=== PATIENT | male | born 2000 | race Caucasian/White ===

== ENCOUNTER 2025-05-30 09:52 | Outpatient (AMB) | payer BC, OTHER, SELFPAY ==
--- NOTE | 2025-05-30 09:56 | MHC.PC.OV ---
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 GI tract ileus/Constipation. SurgHx: Adenoids & Nasal Septum age 6. Septum repair age 15. TM tubes as infant FHx: Mom: Hashimotos's, OA. Dad: Colon CA Dx'd age 45. Aunt Breast CA SocHx: Cigs x 6 mos & quit 2020. Vapes. EtOH: 1 dr a month. No drugs HPI Comments History of Present Illness Details Documentation assistance for Luis Angel Oden MD, was provided by Hayder Sanabria,? Fern Gatherer on 05/30/2025 at 10:41 AM EST. I, Dr. Oden, have read, observed, and verified documentation. ?? 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 apartment) Alcohol intake: current Patient Tobacco Use Status: Former Tobacco user Cigarette Packs Per Day: 1 Cigarettes Per Day: 2 Years Smoked: 1 e-Cigarette/Vaping Use: Currently Using Second Hand Smoke Exposure: Yes service: No Current occupational status: employed and student 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 1. Little interest or pleasure in doing things: not at all 2. Feeling down, depressed, or hopeless: not at all 3. Trouble falling or staying asleep, or sleeping too much: several days 4. Feeling tired or having little energy: several days 5. Poor appetite or overeating: more than half the days 6. Feeling bad about yourself - or that you are a failure or have let yourself or your family down: not at all 7. Trouble concentrating on things, such as reading the newspaper or watching television: not at all 8. Moving or speaking so slowly that other people could have noticed. Or the opposite - being so fidgety or restless that you have been moving around a lot more than usual: not at all 9. Thoughts that you would be better off or of hurting yourself in some way: not at all Total score: 4 Depression Screening Interpretation: Negative Depression Screening Done: Yes 45106 - PHQ-9 Billing: Yes Source: Developed by Drs. Dashawn Hugo, June Lozoya, Maynor Santillan and colleagues, with an educational cassie from [employer]. Thrive Questionnaire Date Thrive assessed: 05/30/25 I am a: Patient What is your living situation today?: I have a steady place to live Within the past 12 months, did the food you bought not last and you didn't have the money to get more?: Never true Within the past 12 months, did you worry whether your food would run out before you got money to buy more?: Never true Do you have trouble paying for medicines?: No Do you have trouble getting transportation to medical appointments?: No Do you have trouble paying your heating and electricity bill?: No Do you have trouble taking care of your child, family member or friend?: No Do you have trouble with day-to-day activities such as bathing, preparing meals, shopping, managing finances, etc.?: No Are you currently unemployed and looking for a job?: No Are you interested in more education?: Yes Please select the resources that you would like help with: None Currently or been in a relationship where the following occur: No concerns reported THRIVE Score: 0 AUDIT C Alcohol Use Questionnaire (AUDIT-C) 1. How often do you have a drink containing alcohol?: Monthly or less 2. How many drinks containing alcohol do you have on a typical day when you are drinking?: 1 or 2 3. How often do you have six or more drinks on one occasion?: Never Total Score: 1 AMARJIT-7 AMB Questionnaire AMARJIT-7 Date AMARJIT - 7 assessed: 05/30/25 Feeling nervous, anxious, or on edge: 1 = Several days Not being able to stop or control worryin = Several days Worrying too much about different things: 2 = More than half the days Trouble relaxin = More than half the days Being so restless that it is hard to sit still: 1 = Several days Becoming easily annoyed or irritable: 1 = Several days Feeling afraid as if something awful might happen: 0 = Not at all Total AMARJIT-7 score (0-4 normal; 5-9 mild; 10-14 moderate; 15-21 severe): 8 Source: Developed by Drs. Dashawn Hugo, June Lozoya, Maynor Santillan and colleagues, with an educational cassie from [employer]. AMARJIT-7 Assessment Billing AMARJIT-7 Assessment Tool: AMARJIT-7 Assessment 35031 Review of Systems Const Denies chills, Denies fatigue, Denies fever(s), Denies headache(s) and Denies weakness ENT Denies dizziness and Denies headache(s) Card Denies chest pain, Denies lightheadedness, Denies dyspnea and Denies other (Palpitations) Resp Denies cough, Denies dyspnea, Denies wheezing and Denies other ( shortness of breath) Musc Denies numbness and Denies tingling Neuro Denies dizziness, Denies headache(s), Denies numbness, Denies tingling, Denies paresthesias and Denies weakness Psych Denies anxiety and Denies depression Endo Denies fatigue Aller/Immun Denies wheezing Physical exam (Primary Care) Vital Signs: Last Vital Signs Temp 98.1 F 05/30/25 10:04 Pulse 61 05/30/25 10:04 Resp 14 05/30/25 10:04 BP 143/80 H 05/30/25 10:26 Pulse Ox 98 05/30/25 10:04 Oxygen Delivery Method Room Air 05/30/25 10:04 BMI result Body Mass Index 32.1 Tobacco/Smoking Status: Tobacco use Status Tobacco use date assessed 05/30/25 05/30/25 10:07 Patient Tobacco Use Status Former Tobacco user 05/30/25 10:07 e-Cigarette/Vaping Use Currently Using 05/30/25 10:07 PHQ-9: PHQ-9 Score PHQ-9: Total score 4 05/30/25 10:27 Depression Screening Interpretation: Negative Thrive Assessment: Date of Thrive Assessment Date Thrive assessed 05/30/25 05/30/25 09:58 Currently or been in a relationship where the following occur: No concerns reported Const General: no acute distress and well developed Nutritional Appearance: well nourished Orientation/consciousness: patient oriented x3 HENMT Head: Yes normocephalic and Yes atraumatic Eyes General: appearance normal, both eyes and all related structures Pupils: Equal, round and reactive pupils present EOM: EOMs intact bilaterally Resp Effort & Inspection: normal respiratory effort Auscultation: clear to auscultation bilaterally Cardio Rate: regular rate Rhythm: regular rhythm Heart sounds: S1 normal heart sound present, S2 normal heart sound present, no gallops, no murmurs and no rubs Neuro General: patient oriented x3 and gait normal Cranial nerves: Yes Equal, round and reactive pupils present Psych Affect: normal affect Coding Level of Care Code New Pt Level 3 (97227) Diagnoses Elevated blood pressure reading R03.0 Laboratory exam ordered as part of routine general medical examination Z00.00 Additional Codes AMARJIT-7 Assessment Billing - AMARJIT-7 Assessment Tool: AMARJIT-7 Assessment 44139 ([id number]) PHQ-9 - 56276 - PHQ-9 Billing: Yes ([id number]) Assessment & Plan Assessment & Plan (1) Elevated blood pressure reading: Code(s): R03.0 - Elevated blood-pressure reading, without diagnosis of hypertension Category: Medical Plan: Blood pressure is elevated. No prior diagnosis of hypertension. He does note that he has gained weight and his diet has worsened. Also notes that his exercise has declined over the past year. Encouraged diet lower in sodium and salt. Encouraged weight loss and exercise Will recheck at next visit. We discussed that it is still elevated, we should discuss medication (2) Laboratory exam ordered as part of routine general medical examination: Code(s): Z00.00 - Encounter for general adult medical examination without abnormal findings Category: Medical Plan: Labs ordered Orders: Orders Comprehensive Webster. Panel Fast Today Z00.00 - Encounter for general adult medical examination without abnormal findings Lipid Panel Today Z00.00 - Encounter for general adult medical examination without abnormal findings UA CC w/rflx Micro + Cult Today Z00.00 - Encounter for general adult medical examination without abnormal findings Microalbumin, Random (w Creat) Today I10 - Essential (primary) hypertension TSH reflex Free T4 Today Z00.00 - Encounter for general adult medical examination without abnormal findings
[2025-05-30 10:04] VITALS: BP 140/90; PULSE 61; RESP 14; TEMP 36.7; O2SAT 98; BMI 32.1
[2025-05-30 10:26] VITALS: BP 143/80
--- OUTSIDE RECORDS SUMMARY | 2025-05-30 10:27 | XMS_ITS | Clinical Summary ---
Author Organization [facility] Address [address] [address] Phone Care Team Providers Care Harvester Operator Name Role Phone Pcp, Unknown Primary Care Provider Unavailabl e Allergies No known active allergies Medications No known medications Active Problems Patient Care Coordination No te Formatting of this note migh t be different from the original. Balta cell [phone] Problem Noted Date Diagnosed Date Elevated cholesterol 12/29/2018 Anxiety 12/27/2017 BMI 28.0-28.9,adult 04/17/2009 Allergic rhinitis 12/21/2007 Overview (12/07/2014): Allergic rhinitis Encounters Date Type Department Care Team Description 04/19/2025 Documentation [facility] [address] [place] [address] Pcp, Unknown from Last 3 Months Immunizations Immunization Administration Dates Next Due COVID-19 (Pre-08/09) Moderna Vaccine, mRNA, PF 11/25/2020,10/30/2020 DTaP, unspecified formulation 03/05/2006 ,03/09/2002,06/23/2001,04/18,02/11/2001 [id number] FORMULATION 12/23/2009,05/2010 Hepatitis A, Adult 01/25/2020 Hepatitis A, ped/adol, 2 dose 03/10/2019 Hepatitis B, unspecified formulation 09/22/2001, 01/11/2001,2000 Hib, unspecified formulation 03/09/2002, 06/23/2001,04/18/2001,02/11 INFLUENZA, SPLIT VIRUS, TRIV ALENT W/ PRESERVATIVE IM 12/06/2013,11/07/2012 Influenza, Unspecified Formulation 09/25/2010,,07/03/2009 MMR 03/05/2006,12/12/2001 Meningococcal MCV4P 03/10/2019, 9(Deferred: Patient Decision),01/27/2013 Pneumococcal conjugate, PCV 7 06/23/2001, 001,02/11/2001 Polio, Unspecified Formulation 5,09/22/2001,04/18/2001,02/11 Tdap 03/31/2023,01/27/2013 Varicella 09/25/2010,03/09/2002 Family History Medical History Relation Comments Asthma Father asthma Colon cancer Father Hypertension Father hypertension Ulcers Maternal Grandfather Ulcers Maternal Grandmother Ulcers Mother Breast cancer Unspecified breast cancer ; Aunt at age of 33 and is still living Relation Status Comments Father Alive Maternal Grandfather Maternal Grandmother Mother Unspecified Social History Tobacco Use Types Packs/Day Years Used Date Smoking Tobacco: Former Smokeless Tobacco: Never Alcohol Use Standard Drinks/Week Comments Yes 2 (1 standard drink = 0.6 oz pur e alcohol) Education Answer Date Recorded Are you interested in more education? Not on beena e 02/12/2023 Are you concerned about learning? Not on file 02/12/2023 No 02/12/2023 No 02/12/2023 Digital Access Answer Date Recorded No 03/15/2023 No 03/15/2023 Reliable internet access at home? Not on file 03/15/2023 Device with a working camera? Not on file Sex and Gender Information Value Date Recorded Sex Assigned at Not on file Legal Sex Male 3:11 AM EST Gender Identity Not on file Sexual Orientation Not on file Last Filed Vital Signs Vital Sign Reading Time Taken Comments Blood Pressure 122/70 03/31/2023 1:10 PM EDT Pulse 84 11/25/2021 2:00 PM EST Temperature 37.2 C (98.9 F) 12/04/2021 1:56 PM EST Respiratory Rate 24 12/20/2007 2:08 PM EST Oxygen Saturation - - Inhaled Oxygen Concentration - - Weight 84.8 kg (187 lb) 03/31/2023 1:10 PM EDT Height 173 cm (5' 8.11 ) 03/31/2023 1:10 PM EDT Body Mass Index 28.34 03/31/2023 1:10 PM EDT Plan of Treatment Health Maintenance Due Date Last Done Comments SMOKING Hx and SMOKELESS TOBACCO SCREENING 2013 HPV VACCINES (1 - Male 3-dose series) 2015 DEPRESSION SCREENING 03/31/2024 03/31/2023, 03/31/20 COVID-19 VACCINE ( season) 2024 10/28/2021, 11/25/2020, 10/30/2020 Adult Td,Tdap Booster 03/31/2033 03/31/2023, 013 PNEUMOCOCCAL VACCINES (0-49 years) Aged Out 06/23/2001, 04/18/2001, 02/11/2001 No longer eligible based on patient's age to complete this topic HIB VACCINES Completed 03/09/2002, 03/2001, 04/18/2001, Additional history exists MENINGOCOCCAL VACCINES (ACWY) Completed 03/10/2019, 01/27/2013 HEPATITIS A VACCINES Completed 01/25/2020, 03/10/20 19 MENINGOCOCCAL VACCINES (B) Aged Out N o longer eligible based on patient's age to complete this topic Medical Devices Not on file Insurance [facility] Care Teams Harvester Operator Relationship Specialty Start Date End Date Pcp, Unknown PCP - General 12/06/24 Additional Source Comments The information contained in this document represents components of the legal health record. It is not the complete legal health record.[facility]
--- OUTSIDE RECORDS SUMMARY | 2025-05-30 10:27 | XMS_ITS | Clinical Summary ---
Author Organization [facility] Address [address] [place] [address] Phone Care Team Providers Care Truck Engine Assembler Name Role Phone Edgar Melendez MD Primary Care Provider [phone] Edgar Melendez MD Unavailable [phone] Edgar Melendez MD Unavailable [phone] Social History Tobacco Use Types Packs/Day Years Used Date Smoking Tobacco: Never Assessed Sex and Gender Information Value Date Recorded Sex Assigned at Not on file Legal Sex Male 6:57 PM EDT Gender Identity Not on file Sexual Orientation Not on file Plan of Treatment Not on file Care Teams Truck Engine Assembler Relationship Specialty Start Date End Date Edgar Melendez MD [address] [address] PCP - General 04/15/07 Edgar Melendez MD [address] [address] PCP - Clinical PCP 01/20/16 Edgar Melendez MD [address] [address] PCP - Insurance PCP 04/15/07
--- OUTSIDE RECORDS SUMMARY | 2025-05-30 10:27 | XMS_ITS | Clinical Summary ---
Author Organization [facility] Address [address] [place] [address] Care Team Providers Care Corporate Planner Name Role Phone Edgar Melendez MD Primary Care Provider [phone] Allergies No known active allergies Medications No known medications Social History Tobacco Use Types Packs/Day Years Used Date Smoking Tobacco: Never Smokeless Tobacco: Never Alcohol Use Standard Drinks/Week Comments Yes 0 (1 standard drink = 0.6 oz pur e alcohol) Sex and Gender Information Value Date Recorded Sex Assigned at Not on file Legal Sex Male 6:41 PM EDT Gender Identity Not on file Sexual Orientation Not on file Last Filed Vital Signs Vital Sign Reading Time Taken Comments Blood Pressure 143/83 12/26/2021 2:04 PM EST Pulse 64 12/26/2021 2:04 PM EST Temperature 36.8 C (98.3 F) 12/26/2021 2:04 PM EST Respiratory Rate 16 12/26/2021 2:04 PM EST Oxygen Saturation 98% 12/26/2021 2:04 PM EST Inhaled Oxygen Concentration - - Weight 86.2 kg (190 lb) 12/26/2021 2:04 PM EST Height 175.3 cm (5' 9 ) 12/26/2021 2:04 PM EST Body Mass Index 28.06 12/26/2021 2:04 PM EST Plan of Treatment Health Maintenance Due Date Last Done Comments Annual Physical 2003 HPV Vaccines (1 - Male 3-dose series) 2015 Hepatitis B Screening 2018 DTaP,Tdap,and Td Vaccines (7 - Td or Tdap) 01/27/2023 01/27/2013, 03/05/2006, 03/09/2002, Additional history exists COVID-19 Vaccine ( season) 2024 11/25/2020, 10/30/2020 Influenza Vaccine (#1) 2025 4, 11/07/2012, 09/25/2010, Additional history exists Pneumococcal Vaccines 0-49 yrs (includes High Risk) Aged Out 06/23/2001, 04/18/2001, 02/11/2001 No longer eligible based on patient's age to complete this topic HIB Vaccines Completed 03/09/2002, 03/2001, 04/18/2001, Additional history exists Hepatitis A Vaccine Completed 01/25/2020, 9 Insurance Care Teams Corporate Planner Relationship Specialty Start Date End Date Edgar Melendez MD [address] [place] [address], [address] [facility] [place] [place] PCP - General Pediatrics 12/26/21
== END 2025-05-30 10:42 | disposition home or self-care (01) ==
LOC: HO.HMCFM 09:52
PROVIDERS: PCP Family Medicine; Visit Provider Family Medicine
DX: R03.0 Elevated blood-pressure reading, without diagnosis of hypertension (principal); Z00.00 Encounter for general adult medical examination without abnormal findings

== ENCOUNTER → 2025-05-30 09:52 | Outpatient (BNVA) | payer BC, OTHER, SELFPAY | PROVIDERS: PCP Family Medicine; Visit Provider Family Medicine | DX: Z00.00 Encounter for general adult medical examination without abnormal findings (principal); R03.0 Elevated blood-pressure reading, without diagnosis of hypertension; I10 Essential (primary) hypertension | CPT/HCPCS: 96127 ==

== ENCOUNTER 2025-09-18 11:33 | Outpatient (AMB) | payer BC, OTHER, SELFPAY ==
--- NOTE | 2025-09-18 11:38 | MHC.PC.OV ---
Vital Signs 09/18/25 11:41 Height 5 ft 9 in Weight 208 lb 8 oz BMI 30.8 BP 130/68 Blood Pressure Location Rt brachial Position Sitting Respiration 14 Pulse 78 Pulse Source Pulse Oximeter Temp 98.4 F Temp Source Temporal Artery Scan Pulse Oximetry (%) 98 Oxygen Delivery Method Room Air Intake Visit Reasons: CPE with f/u labs and health maint. 30 mins Intake Note: Balta presents in the office today for his annual physical. 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 30 mins HPI Details 24 y/o male presents for a CPE with f/u labs. No recent labs to review. Blood pressure today 130/68, 78p. Had been elevated before last office visit in May. 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 apartment) Alcohol intake: current Patient Tobacco Use Status: Former Tobacco user Cigarette Packs Per Day: 1 Cigarettes Per Day: 2 Years Smoked: 1 e-Cigarette/Vaping Use: Currently Using Second Hand Smoke Exposure: Yes service: No Current occupational status: employed and student 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 [place] Current occupational exposures/hazards: Yes Cognitive needs: No Hearing needs: No Vision needs: No Questionnaire Thrive Questionnaire Date Thrive assessed: 05/30/25 I am a: Patient What is your living situation today?: I have a steady place to live Within the past 12 months, did the food you bought not last and you didn't have the money to get more?: Never true Within the past 12 months, did you worry whether your food would run out before you got money to buy more?: Never true Do you have trouble paying for medicines?: No Do you have trouble getting transportation to medical appointments?: No Do you have trouble paying your heating and electricity bill?: No Do you have trouble taking care of your child, family member or friend?: No Do you have trouble with day-to-day activities such as bathing, preparing meals, shopping, managing finances, etc.?: No Are you currently unemployed and looking for a job?: No Are you interested in more education?: Yes Please select the resources that you would like help with: None Currently or been in a relationship where the following occur: No concerns reported THRIVE Score: 0 AMARJIT-7 AMB Questionnaire AMARJIT-7 Date AMARJIT - 7 assessed: 05/30/25 Source: Developed by Drs. Dashawn Hugo, June Lozoya, Maynor Santillan and colleagues, with an educational cassie from [employer]. Review of Systems Const Denies chills, Denies fatigue, Denies fever(s), Denies headache(s) and Denies weakness Eyes Denies change in vision ENT Denies dizziness, Denies headache(s), Denies hearing loss, Denies nasal congestion, Denies sinus pain, Denies sinus pressure and Denies sore throat Card Denies chest pain, Denies lightheadedness, Denies dyspnea and Denies other (palpitations) Resp Denies cough, Denies dyspnea and Denies wheezing GI Denies abdominal pain, Denies melena, Denies hematochezia, Denies change in bowel habits, Denies dyspepsia and Denies nausea Denies hematuria and Denies dysuria Musc Denies abnormal gait, Denies myalgias, Denies arthralgias, Denies numbness and Denies tingling Skin/Breast Denies rash, Denies unusual bruising and Denies wounds Neuro Denies abnormal gait, Denies dizziness, Denies headache(s), Denies memory loss, Denies numbness, Denies Sensory deficit (Neuro), Denies tingling and Denies weakness Psych Denies anxiety, Denies depression and Denies memory loss Endo Denies cold intolerance, Denies fatigue, Denies heat intolerance, Denies polydipsia and Denies polyuria Brendon/Lymph Denies easy bleeding and Denies easy bruising Aller/Immun Denies wheezing Physical exam (Primary Care) Vital Signs: Last Vital Signs Temp 98.4 F 09/18/25 11:41 Pulse 78 09/18/25 11:41 Resp 14 09/18/25 11:41 BP 130/68 09/18/25 11:41 Pulse Ox 98 09/18/25 11:41 Oxygen Delivery Method Room Air 09/18/25 11:41 BMI result Body Mass Index 30.8 Tobacco/Smoking Status: Tobacco use Status Tobacco use date assessed 09/18/25 09/18/25 11:43 Patient Tobacco Use Status Former Tobacco user 09/18/25 11:41 e-Cigarette/Vaping Use Currently Using 09/18/25 11:41 Thrive Assessment: Date of Thrive Assessment Date Thrive assessed 05/30/25 09/18/25 11:39 Currently or been in a relationship where the following occur: No concerns reported Const General: no acute distress, well developed, alert and awake Nutritional Appearance: well nourished Orientation/consciousness: patient oriented x3 HENMT Head: Yes normocephalic and Yes atraumatic Ears: hearing grossly normal bilaterally and TM's normal bilaterally General nose exam: Normal external nose present and Normal nares present Mouth: Normal oral and palatal mucosa present and moist mucous membranes Teeth and gingiva: dentition normal Throat: Yes posterior oropharynx normal Eyes General: appearance normal, both eyes and all related structures Pupils: Equal, round and reactive pupils present and Pupil accommodation reflex normal EOM: EOMs intact bilaterally Neck Neck: Yes normal visual inspection, Yes no lymphadenopathy and Yes trachea midline Thyroid: Thyroid normal Carotids: no bruits Lymphatic: no lymphadenopathy noted Chest Chest palpation & inspection: normal inspection of the chest Resp Effort & Inspection: normal respiratory effort Auscultation: clear to auscultation bilaterally Cardio Rate: regular rate Rhythm: regular rhythm Heart sounds: S1 normal heart sound present, S2 normal heart sound present, no gallops, no murmurs and no rubs Bruits: no abdominal aortic bruits and no carotid bruits GI Palpation (GI): No Abdominal aortic bruit present, Soft to palpation, nontender, No hepatosplenomegaly present and No Rebound tenderness present Auscultation: normal bowel sounds General: Yes no CVA tenderness Back/Spine/Pelvis Back: no CVA tenderness Cervical Spine: cervical ROM normal and No Cervical spine tenderness Thoracic/Lumbar Spine: thoraco-lumbar ROM normal, No pain with thoraco-lumbar ROM, No thoracic spinal tenderness and No lumbar spinal tenderness Skin Lesions: no lesions Rashes: no rashes Trauma: no lacerations or abrasions Wounds: no wounds Nails: normal Neuro General: patient oriented x3 Cranial nerves: Yes Equal, round and reactive pupils present Cognition (Neuro): normal cognition Gait exam (Neuro): Normal gait present Motor exam (neuro): 5/5 motor strength present throughout Sensory Exam: No Sensory deficit (Neuro) Deep tendon reflexes (DTR's): Right patellar reflex intensity grade: 2+ and Left patellar reflex intensity grade: 2+ Extrem General: Yes normal to inspection and No edema Psych Appearance: grossly normal Affect: normal affect Attitude: cooperative Thought process: Normal thought process present Coding Level of Care Code Est Pt Level 3 (76606) Est Pt Prev Care 18-39y(20338) Diagnoses Adult general medical exam Z00.00 Elevated blood pressure reading R03.0 Assessment & Plan Assessment & Plan (1) Adult general medical exam: Code(s): Z00.00 - Encounter for general adult medical examination without abnormal findings Category: Medical Plan: 24-year-old male presents for complete physical exam Exam within limits Encouraged healthy diet with active lifestyle and plenty of exercise (2) Elevated blood pressure reading: Code(s): R03.0 - Elevated blood-pressure reading, without diagnosis of hypertension Category: Medical Plan: Blood pressure is still elevated but < 140/90 Prehypertensive range Work at diet low in Salt/Sodium. Encouraged exercise & Wt control Will continue to monitor
[2025-09-18 11:41] VITALS: BP 130/68; PULSE 78; RESP 14; TEMP 36.9; O2SAT 98; BMI 30.8
--- OUTSIDE RECORDS SUMMARY | 2025-09-18 13:46 | XMS_ITS | Clinical Summary ---
Author Organization [facility] Address [address] [place] [id number] Care Team Providers Care Founding Partner Name Role Phone Edgar Melendez MD Primary Care Provider [phone] Allergies No known active allergies Medications No [...] 12/26/2021 2:04 PM EST Plan of Treatment Not on file Insurance [facility] Care Teams Founding Partner Relationship Specialty Start Date End Date Edgar Melendez MD [address] [place] [address], [address] [facility] [place] [place] PCP - General Pediatrics 12/26/21
--- OUTSIDE RECORDS SUMMARY | 2025-09-18 13:46 | XMS_ITS | Clinical Summary ---
Author Organization [facility] Address [address] [place] [address] Phone Care Team Providers Care Straightedge Worker Name Role Phone Edgar Melendez MD Primary Care Provider [phone] Edgar Melendez MD Unavailable [phone] Edgar Melendez MD Unavailable [phone] Social History Tobacco Use Types Packs/Day Years Used Date Smoking Tobacco: Never Assessed Sex and Gender Information Value Date Recorded Sex Assigned at Not on file Legal Sex Male 6:57 PM EDT Gender Identity Not on file Sexual Orientation Not on file Plan of Treatment Not on file Care Teams Straightedge Worker Relationship Specialty Start Date End Date Edgar Melendez MD [address] [address] PCP - General 04/15/07 Edgar Melendez MD [address] [address] PCP - Clinical PCP 01/20/16 Edgar Melendez MD [address] [address] PCP - Insurance PCP 04/15/07
--- OUTSIDE RECORDS SUMMARY | 2025-09-18 13:46 | XMS_ITS | Clinical Summary ---
Author Organization [facility] Address [address] [address] Phone Care Team Providers Care Planting Supervisor Name Role Phone Pcp, Unknown Primary Care Provider Unavailabl e Allergies No known active allergies Medications No known medications Active Problems Patient Care Coordination No te Formatting of this note migh t be different from the original. Balta cell [phone] Problem Noted Date Diagnosed Date Elevated cholesterol 12/29/2018 Anxiety 12/27/2017 BMI 28.0-28.9,adult 04/17/2009 Allergic rhinitis 12/21/2007 Overview (12/07/2014): Allergic rhinitis Encounters Date Type Department Care Team Description 08/10/2025 Documentation [facility] [address] [place] [address] Pcp, Unknown from Last 3 Months Immunizations Immunization Administration Dates Next Due COVID-19 (Pre-08/09) Moderna Vaccine, mRNA, PF 11/25/2020,10/30/2020 DTaP, unspecified formulation 03/05/2006 ,03/09/2002,06/23/2001,04/18,02/11/2001 [id number] FORMULATION 12/23/2009,05/2010 Hepatitis A, Adult 01/25/2020 Hepatitis [...] series) 2015 DEPRESSION SCREENING 03/31/2024 03/31/2023, 03/31/20 23 INFLUENZA VACCINE (#1) 2025 4, 11/07/2012, 09/25/2010, Additional history exists COVID-19 VACCINE ( season) 2025 10/28/2021, 11/25/2020, 10/30/2020 Adult Td,Tdap Booster 03/31/2033 [...] topic Medical Devices Not on file Insurance [facility] Care Teams Planting Supervisor Relationship Specialty Start Date End Date Pcp, Unknown PCP - General 12/06/24 Additional Source Comments The information contained in this document represents components of the legal health record. It is not the complete legal health record.[facility]
== END 2025-09-18 11:55 | disposition home or self-care (01) ==
LOC: HO.HMCFM 11:34
PROVIDERS: PCP Family Medicine; Visit Provider Family Medicine
DX: Z00.00 Encounter for general adult medical examination without abnormal findings (principal); R03.0 Elevated blood-pressure reading, without diagnosis of hypertension